=== PATIENT | male | born 1950 | race African-American/Black ===

== ENCOUNTER 2016-07-03 12:10 | Inpatient (IN) ==
--- NOTE | 2016-07-03 13:27 | PROVIDER DOCUMENTATION ---
HPI-General Adult - General Chief Complaint: Weakness Stated Complaint: WEAKNESS Time Seen by Provider: 07/03/16 13:11 Source: patient, family Allergies/Adverse Reactions: Patient Allergies Allergy/AdvReac Type Severity Reaction Status Date / Time levofloxacin [From Levaquin] Allergy Unknown Verified 07/03/16 12:55 Home Medications: Home Medication List Medication Instructions Recorded Confirmed Last Taken Type Allopurinol [Zyloprim] 300 mg PO DAILY 03/31/12 07/03/16 07/02/16 History Isosorbide Mononitrate E.r. [Imdur] 30 mg PO DAILY 03/31/12 07/03/16 07/02/16 History Multivitamin [Multi-Vitamin Daily] 1 each PO DAILY 04/26/14 07/03/16 07/02/16 History Albuterol Sulfate [Proair Hfa] 8.5 gm IH Q4HR 06/13/14 07/03/16 07/02/16 History Bisoprolol Fumarate/Hctz [Ziac 1 each PO DAILY 06/13/14 07/03/16 07/02/16 History 10-6.25 mg Tablet] Donepezil HCl 10 mg PO DAILY 06/13/14 07/03/16 07/02/16 History Nitroglycerin [Nitrostat] 0.4 mg SL PRN PRN 06/13/14 09/26/15 06/01/14 History Spironolactone [Aldactone] 25 mg PO DAILY 06/13/14 07/03/16 07/02/16 History Tamsulosin [Flomax] 0.4 mg PO BID 06/13/14 09/26/15 09/25/15 21:00 History Linagliptin/Metformin HCl 1 tab PO DAILY 05/10/15 07/03/16 07/02/16 History [Jentadueto 2.5 mg-1000 mg Tab] Diltiazem L.a. [Cardizem LA] 120 mg PO DAILY #30 tablet 05/14/15 07/03/16 Rx Aspirin 325 mg PO DAILY 09/26/15 07/03/16 07/02/16 History Esomeprazole [Nexium] 40 mg PO DAILY 09/26/15 07/03/16 07/02/16 History Fluticasone 50 Mcg Nasal Gideon 1 each IESHA DAILY 09/26/15 09/26/15 09/25/15 21: 00 History [Flonase] Furosemide [Lasix] 40 mg PO QHS 09/26/15 09/26/15 09/25/15 21:00 History Furosemide [Lasix] 80 mg PO DAILY 09/26/15 09/26/15 09/25/15 09:00 History Gabapentin 100 mg PO TID 09/26/15 07/03/16 07/02/16 History Hum Insulin NPH/Reg Insulin Hm 80 unit SUBQ TID 09/26/15 09/26/15 09/25/15 22: 00 History [Novolin 70-30 100 Unit/ml Vial] Lisinopril 20 mg PO DAILY 09/26/15 07/03/16 07/02/16 History Montelukast Sodium [Singulair] 10 mg PO DAILY 09/26/15 07/03/16 07/02/16 History Tramadol [Ultram] 50 mg PO PRN PRN 09/26/15 09/26/15 Unknown History Vortioxetine Hydrobromide 10 mg PO DAILY 09/26/15 09/26/15 09/25/15 09:00 History [Brintellix] Ciprofloxacin HCl [Cipro] 500 mg PO DAILY 07/03/16 07/03/16 07/02/16 History - History of Present Illness -Gen Adult Nature of Presenting Problems: 66 yo male with hx of CHF and recurrent UTI presents via ambulance with generalized weakness. Has been worsening over the last several days, per family. HH comes out to see him as has an ulcer on his left foot and on his right buttock, changing dressings. Became concerned today because was very weak and when HH came out they thought his vital signs were abnormal. Says has been off and on with weakness for the past few days, currently on third round of cipro for his UTI x 28 days. Currently takes 80mg Lasix in the morning and 40 mg in the evening. Pt also has DM2, insulin dependent. Blood sugars for the past few days have been good, in the 110-150s. Last week after starting third round of abx were up in the 500s. Has not been drinking much fluid, not eating as much as usual. Has rash in groin, using cream on it but is uncomfortable. Location of Pain/Injury: reports: pelvis, genitalia, lower extremity Pain Radiation: reports: flank (L), legs (lower) Quality of Pain: reports: burning, pressure Severity: reports: moderate Onset/Duration: reports: last week Timing: reports: still present, getting worse Context/Activities at Onset: reports: light activity Modifying Factors: improves with: lying down, rest Associated Symptoms: reports: diarrhea (some diarrhea, denies blood), fatigue, genitourinary problems (current/recurrent UTI), loss of appetite, malaise, shortness of breath, weakness. denies: constipation, diaphoresis, EENT symptoms , fever/chills, headaches, nausea, syncope, vomiting Similar Symptoms Previously?: No Recently seen or treated by another doctor?: Yes (PCM for UTI) - Diabetes Related Context Context: reports: change in mental status (lethargy) Review of Systems - Adult - REVIEW OF SYSTEMS - ADULT Constitutional: reports: tram. denies: chills, fever Eyes: denies: blurred vision, double vision Ears, Nose, Mouth & Throat: denies: sinus problem, throat pain Cardiovascular: reports: edema (LE bilat), orthopnea. denies: chest pain, syncope Respiratory: reports: dyspnea on exertion, shortness of breath. denies: cough, hemoptysis, wheezing Gastrointestinal: reports: abdominal pain (suprapubic), diarrhea (occasional), poor appetite. denies: hematemesis, nausea, rectal bleeding, vomiting Genitourinary: reports: dysuria, flank pain, urinary retention. denies: discharge, hematuria Musculoskeletal: reports: back pain, muscle weakness Integumentary: reports: rash (groin area), skin sores/ulcer (left foot) Neurological: reports: other (lethargy, slow to speak but not slurring words). denies: dizziness/vertigo, headache/migraines, loss of balance, paresthesia, seizure, slurred speech, syncope Endocrine: denies: change in skin pigment, excessive sweating, increased thirst Hematologic/Lymphatic: denies: easy bruising Past History - Adult - PAST MEDICAL HISTORY-ADULT Review of Records: reports: Old Records Reviewed, Nursing Assessment Review, Medications Reviewed, Social history reviewed & non-contributory. Major Childhood Illnesses: reports: denies history Cardiovascular: reports: CHF, HTN, [place] Respiratory: reports: COPD Gastrointestinal: reports: GERD Endocrine/Immune: reports: Diabetes Diabetes Type: Type 2 Diabetes controlled by:: Insulin Dependent - PRIOR SURGERIES/PROCEDURES Surgical/Procedure History: reports: cardiac stent (x6), orthopedic (extremity) - IMMUNIZATION STATUS Childhood Immunizations: See Nurse Assessment Flu Vaccine: See Nurse Assessment - FAMILY HISTORY Family History: reviewed, not pertinent - SOCIAL HISTORY Smoking: quit greater than 1 year (quit 17 years ago) Physical Exam-General - PHYSICAL EXAM-ADULT Initial Vital Signs Reviewed: Yes - CONSTITUTIONAL General Appearance: severe distress, obese, lethargic, slow to respond - EYES Eyes: other (dry conjunctiva without erythema or drainage) - HEAD, EARS, NOSE, MOUTH & THROAT HENMT: normocephalic/atraumatic. negative: moist mucous membranes (dry lips) - NECK Neck: supple. negative: trachial deviation - RESPIRATORY Respiratory: chest non-tender, lungs clear, respiratory distress (shallow breathing, pt laying on side in bed due to pain in buttock. is on O2 NC), decreased breath sounds. negative: accessory muscle use, crackles, rales, rhonchi, stridor, wheezing, crepitus - CARDIOVASCULAR Cardiovascular: regular rate, rhythm, no gallop, no JVD, no murmur. negative: no edema (Peripheral edema bilat, pitting 1+), bradycardia, tachycardia - GASTROINTESTINAL (ABDOMEN) Abdominal Exam: non tender, soft. negative: distended, guarding, rigid, rebound , tenderness - MUSCULOSKELETAL Back Exam: no CVA tenderness, decreased range of motion (not able to move easily on bed due to pain). negative: ecchymosis Extremity: erythema, inflammation, pedal edema (1+ pitting), swelling, tenderness. negative: no pedal edema Peripheral Pulses: radial (R): 1+, radial (L): 1+, dorsalis-pedis (R): 1+, dorsalis-pedis (L): 1+ - SKIN Integumentary: decubitus, swelling, tenderness - NEUROLOGIC Neurologic: motor weakness (bilateral with hand squeeze, diminished) - PSYCHIATRIC Psych/Mental Status: other (lethargic, didn't speak much to me, mostly had speak for him) Progress - PLAN OF CARE/RESULTS Progress/Plan/Lab Results: Vital Signs - 8 hr 07/03/16 12:51 Temperature 97.8 F Pulse Rate 64 Respiratory Rate 22 Blood Pressure 119/84 O2 Sat by Pulse Oximetry 100 Orders Category Date Time Status Saline Loc NOW Care 07/03/16 13:23 Ordered CHEST-2 VIEWS [RAD] Stat Exams 07/03/16 13:23 Ordered CBC WITH DIFF [HEME] Stat Lab 07/03/16 13:23 Uncollected CK PROFILE [SP CHEM] Stat Lab 07/03/16 13:23 Uncollected COMPREHENSIVE METABOLIC PANEL [CHEM] Stat Lab 07/03/16 13:23 Uncollected PRO B-NATRIURETIC PEPTIDE Stat Lab 07/03/16 13:23 Uncollected TROPONIN T Stat Lab 07/03/16 13:23 Uncollected UA NIMS W/REFLEX CULT [URINALYSIS] Stat Lab 07/03/16 13:[address] Callejas regarding patient, she went to see him at bedside. Pt has significant weakness and lethargy, dehydration, hx of CHF and recurrent UTI with elevation in white count. No other SIRS criteria at this time, recheck of vitals had all vitals wnl. Recommend admission for dehydration, recurrent UTI, altered mental status and weakness. Per Dr. Callejas, no signs of Forniere's gangrene on inspection of groin. Called Hospitalist at [address] Pollard Result Diagrams: 07/03/16 14:06 07/03/16 14:06 Departure - Departure Time of Disposition Decision: 16:40 DIAGNOSIS: Weakness, Lethargy, Dehydration, Shortness of breath UTI (urinary tract infection) Qualifiers: Urinary tract infection type: acute cystitis Hematuria presence: without hematuria Qualified Code(s): N30.00 - Acute cystitis without hematuria CHF (congestive heart failure) Qualifiers: Congestive heart failure type: unspecified congestive heart failure type Congestive heart failure chronicity: chronic Qualified Code(s): I50.9 - Heart failure, unspecified CHF exacerbation Qualifiers: Congestive heart failure type: unspecified congestive heart failure type Qualified Code(s): I50.9 - Heart failure, unspecified Dyspnea Qualifiers: Dyspnea type: shortness of breath Qualified Code(s): R06.02 - Shortness of breath Disposition: ADMITTED INPATIENT 09 Certified Medical Emergency: Emergent Condition: Poor Referrals and Follow-Ups: Mickie Guthrie MD [Primary Care Provider] - Attestation - Physician/ JOE Attestation Patient care was provided by Advanced Practice Provider:: Yes Advanced Practice Provider:: Serjio Garcia Advanced Practice Provider documentation review:: The Mid-level provider documentation, treatment plan and medical decision making was reviewed by the physician who agrees with all treatment and medical decision making by the MLP. The physician spent face to face time with patient:: Yes Advanced Practice Provider documentation review:: The physician spent face to face time with this patient and agrees with all MLP documentation, treatment, and medical decision making by the MLP. See provider notes for further information.
[2016-07-03 14:20] LABS: MANUAL DIFF NEEDED? NO
[2016-07-03 14:29] LABS: BASO% 0.4 % (0.0-0.8); EOS# 0.11 X1000 (0.0-0.7); EOS% 0.9 % (0.0-10.0); HEMATOCRIT 41.6 % (42.0-52.0); HEMOGLOBIN 13.9 g/dL (14.0-18.0); IMM GRAN# 0.02 X1000 (0.0-0.04); IMM GRAN% 0.2 % (0.0-0.5); LYMPH# 5.15 X1000 (1.2-3.4); MCHC 33.4 g/dL (33-37); MCV 92.7 FL (81-99); MONO# 1.29 X1000 (0.11-0.59); MONO% 10.3 % (1.7-9.3); MPV 12.1 FL (7.4-10.4); NEUT% 47.2 % (42.2-75.2); PLT 235 X1000 (130-400); RBC 4.49 XMIL (4.7-6.1)
--- NOTE | 2016-07-03 14:29 | Diag Imaging Result Document ---
PROCEDURE NAME: CHEST-1 VIEW - 07/03/2016 PORTABLE CHEST X-RAY: COMPARISON: 09/26/2015. FINDINGS: Stable cardiomegaly. Stable low lung volumes with right hemidiaphragm elevation. No definite infiltrates. IMPRESSION: Cardiomegaly. Low lung volumes. No change from prior.
[2016-07-03 14:42] LABS: CALCIUM 9.5 mg/dL (8.8-10.2); POTASSIUM 4.8 mmol/L (3.5-5.1); TOTAL BILIRUBIN 0.19 mg/dL (0.20-1.00); TOTAL PROTEIN 7.5 g/dL (6.3-8.3)
[2016-07-03 15:02] LABS: CK INDEX 1.3 (0.0-2.5); CK-MB 4.55 ng/mL (0.0-5.0)
[2016-07-03] MEDS ORDERED: NS 1,000 ML IV ONE (15:40)
--- NOTE | 2016-07-03 17:40 | ED EKG INTERP ---
This chart was entered by Grace Nguyễn Scribe, acting as scribe for Phillip Callejas MD. EKG Interpretation - EKG Time of EKG reading by physician:: 12:23 EKG Read and Signed by:: Phillip Callejas EKG Interpretation (*Must complete 3 of following elements*): Abnormal Rate: 63 Rhythm: nsr QRS: normal MS Interval: normal Prior EKG Comparison: unchanged from prior Comments: anterior infarct This chart was documented by the indicated scribe, (Grace Nguyễn Scribe) and accurately reflects the services I performed and decisions made by Britta rendon Tom-Meka M., MD, as attested by the provider's signature.
[2016-07-03] MEDS ORDERED: PLAVIX PO ONE (17:52)
[2016-07-03] MEDS ORDERED: ASPIRIN PO ONE (17:52)
--- NOTE | 2016-07-03 18:53 | HISTORY AND PHYSICAL ---
HISTORY OF PRESENT ILLNESS: This is a 66-year-old. He states that he woke up about 4:30 this morning and he seemed to be weaker and it seemed to progress on his left side in particular. His left side seemed to be weak in his left arm and left leg. They did not notice any facial drooping. No change in speech. No change in vision by his report. He never lost consciousness. He just could tell he was getting weak on that left side. Denies any seizure activity or myoclonus. No trauma recently. PAST MEDICAL HISTORY: 1. Coronary artery disease. He has had, I think, 2 myocardial infarctions. He has had a total of 6 stents placed. 2. Diabetes mellitus type 2 insulin dependent. 3. Hypertension. 4. Morbid obesity. 5. Gastroesophageal reflux disease. 6. Hyperlipidemia. 7. Chronic obstructive pulmonary disease on 4 liters of O2 per nasal cannula. 8. Chronic renal insufficiency. 9. Dementia. 10. Ataxia. 11. History of tremor in the past. 12. Chronic kidney disease. PAST SURGICAL HISTORY: Knee replacement, back surgery, cardiac stenting x6. Apparently, he has had back trouble, and they did a diskectomy years ago, but he is having more trouble with his back, and because of his size, they are not able to do anymore. SOCIAL HISTORY: He is disabled and his takes care of him. Former smoker of 3 packs per day, quit in 1999. Negative ethanol. Negative for drugs. FAMILY HISTORY: I did not explore, but looking back at the previous history, mother had a CVA, father myocardial infarction and coronary artery disease. HOME MEDICATIONS: List of home medications reviewed. ALLERGIES: No known drug allergies. REVIEW OF SYSTEMS: Constitutional: No recent weight gain or loss. No fever or chills. HEENT: Unremarkable. Respiratory: No increased work of breathing or dyspnea. Cardiovascular: No chest pain or tachy palpitation. Gastrointestinal/Genitourinary: No significant complaints noted, and they are watching him for chronic kidney disease, and it looks like his serum creatinine is elevated. He does have a history of gastroesophageal reflux. PHYSICAL EXAMINATION: GENERAL: On physical exam in the emergency room, he is awake, alert, pleasant, at the bedside, and gives a good history. VITAL SIGNS: Temperature 98.2 degrees, pulse 65, respirations 20, blood pressure 103/52. HEENT: Pupils are equal, round. CVP less than 6 cm. LUNGS: Clear in all lung pascual, anterolateral. CARDIOVASCULAR: Regular rhythm and rate without murmur or S3. ABDOMEN: Soft, nontender. Positive bowel sounds. SKIN: Warm and dry. MUSCULOSKELETAL: It is difficult for me to tell the true difference in the right and left side. 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 He is able to lift his left leg off the bed. It feels like it is a little stronger than it was a couple of hours ago. EXTREMITIES: Without clubbing, cyanosis, or edema. WEIGHT AND HEIGHT: His weight is 292 pounds, height 5 feet 10 inches. OXYGEN SATURATION: His O2 saturation was 98%. LABORATORY DATA: White blood cell count 12,570, hematocrit 41, platelet count 235,000. Sodium 138, potassium 4.8, chloride 99, bicarbonate 21, BUN 124, creatinine 3.6, blood sugar 104, calcium 9.5. Liver functions unremarkable. Alkaline phosphatase 104. CPK 346 total and MB was 0.086, index 4.55, proBNP 56. Albumin 4. Chest x-ray, cardiomegaly and low lung volumes, unremarkable, no acute pathology. ASSESSMENT AND PLAN: 1. Left sided weakness. Difficult to measure, concerned about possible transient ischemic attack versus a cerebrovascular accident in the right hemisphere. We may very well want to get an MRI or MRA of the head or both tomorrow. We will watch his blood pressure. Reviewing his medications, he is not on aspirin. We will make sure we give him some aspirin, and I think I will give him the 325, give 1 dose now and every day. 2. History of coronary artery disease. I do not see any evidence of active cardiac ischemia at this time. 3. History of gouty arthritis, aware. He is on allopurinol. 4. Hypercholesterolemia. He is on Crestor. Check his lipid profile in the morning. 5. History of hypertension. We will monitor his blood pressure. He is on lisinopril. He is on Imdur. 6. Diabetes mellitus type 2. Check pattern sugars and see how we are doing with the sugars. Check a hemoglobin A1c in the morning. Also, we will check a T4, TSH, B12, and folate. Check another set of enzymes of CPK and troponin in the morning as well. 7. Chronic kidney disease. I am guessing this is at least a stage 3B and may be progressing. We will give him some fluids and see how we do. Looking at previous echocardiogram done on 05/13/2015, he appears to have some trace mitral regurgitation. There is no pericardial effusion. His ejection fraction is 50% to 55%. Normal left ventricular activity. cc: Chilango Pollard MD
[2016-07-03] MEDS ORDERED: ZOFRAN IV PRN (19:34)
[2016-07-03] MEDS: TYLENOL PO PRN (20:47)
[2016-07-03] MEDS: NS 1,000 ML IV SCH (20:47)
[2016-07-03] MEDS: LIPITOR PO SCH (20:47)
[2016-07-03] MEDS: HUMULIN R SUBQ SCH (20:48)
[2016-07-03] MEDS: HEPARIN SUBQ SCH (20:48)
[2016-07-03] MEDS ORDERED: CALMOSEPTINE OINTMENT TOP PRN (21:12)
[2016-07-03] MEDS: VENTOLIN HFA INH SCH (23:41)
[2016-07-04] MEDS: TYLENOL PO PRN ×2 (02:37→20:45)
[2016-07-04] MEDS: VENTOLIN HFA INH SCH ×6 (02:43→20:05)
[2016-07-04 05:32] LABS: MANUAL DIFF NEEDED? NO
[2016-07-04 05:35] LABS: BASO% 0.6 % (0.0-0.8); EOS# 0.12 X1000 (0.0-0.7); EOS% 1.5 % (0.0-10.0); HEMATOCRIT 39.6 % (42.0-52.0); HEMOGLOBIN 13.2 g/dL (14.0-18.0); MCHC 33.3 g/dL (33-37); MONO# 1.02 X1000 (0.11-0.59); MONO% 12.6 % (1.7-9.3); MPV 12.3 FL (7.4-10.4); NEUT% 38.3 % (42.2-75.2); PLT 207 X1000 (130-400); RBC 4.26 XMIL (4.7-6.1)
--- NOTE | 2016-07-04 05:41 | EKG Report ---
Test Performed on : 07/03/2016 12:23:28 PM Test Reason : No Order in [facility] Blood Pressure : / mmHG Vent. Rate : 063 BPM Atrial Rate : 063 BPM P-R Int : 170 ms QRS Dur : 096 ms QT Int : 450 ms P-R-T Axes : 047 -05 012 degrees QTc Int : 460 ms Normal sinus rhythm. Cannot rule out Anterior infarct , age undetermined Abnormal ECG When compared with ECG of 26-SEP-2015 01:29, premature atrial complexes. are no longer present Unconfirmed Result
[2016-07-04 05:47] LABS: INR 1.04
[2016-07-04 05:56] LABS: HEMOGLOBIN A1C 9.6 % (4.8-6.0)
[2016-07-04 06:09] LABS: FREE T4 1.06 ng/dL (0.93-1.70)
[2016-07-04 06:13] LABS: ALBUMIN 3.5 g/dL (3.5-5.0); CALCIUM 8.8 mg/dL (8.8-10.2); POTASSIUM 5.1 mmol/L (3.5-5.1); TOTAL BILIRUBIN 0.22 mg/dL (0.20-1.00); TOTAL PROTEIN 7.1 g/dL (6.3-8.3)
[2016-07-04] MEDS: HUMULIN R SUBQ SCH ×4 (06:53→20:34)
[2016-07-04] MEDS: NS 1,000 ML IV SCH ×2 (07:41→20:46)
[2016-07-04] MEDS: CARDIZEM LA PO SCH (09:47)
[2016-07-04] MEDS: NEXIUM PO SCH (09:47)
[2016-07-04] MEDS: ZEBETA PO SCH (09:48)
[2016-07-04] MEDS: HEPARIN SUBQ SCH ×2 (09:48→20:34)
[2016-07-04] MEDS: IMDUR PO SCH (09:48)
[2016-07-04] MEDS: ASPIRIN PO SCH (09:48)
[2016-07-04] MEDS: PLAVIX PO SCH (09:48)
[2016-07-04] MEDS: ARICEPT PO SCH (09:51)
--- NOTE | 2016-07-04 12:52 | PROGRESS NOTE ---
DATE: 07/04/2016 SUBJECTIVE: Left side feels about the same. Still weak in the left and the left leg. He is too large to get an MRI and I am unable to get that. He did have some questions. Apparently, they were treating him for diverticulitis and he is on Flagyl and Cipro. So, I will put him back on those. He also stated that Dr. Elam wants him to stay on the LAURA inhibitor. So, we will probably start that back again as well. Dr. Elam is to see him here as well and we will discuss his case. OBJECTIVE: Vital Signs: Afebrile, temp 97.5 degrees, pulse 72, respirations 16, blood pressure 115/60. HEENT: Pupils are equal, round. Lungs: Clear in all lung pascual. Cardiovascular: Regular rate without murmurs or S3. Abdomen: Soft. Skin: Warm and dry. : He has had about 240 mL urine output. LAB: White count 8080, hematocrit 39, platelet count 207,000. Blood sugar 131, troponin 0.077. Hemoglobin A1c was 9.6. ASSESSMENT AND PLAN: 1. Left-sided weakness. I suspect this was a right hemisphere cerebrovascular accident. We will ask Dr. Jc to weigh in and give his opinion. Unable to get an MRI and MRA of his head because of his size. I did add Plavix to his regimen. 2. History of coronary artery disease. I do not see any sign of active ischemia. 3. History of gouty arthritis. He was on allopurinol and probably will restart that. I have held that because of renal function. 4. Hypercholesterolemia. He is on Crestor. 5. Hypertension. He was on lisinopril. Renal function, we will repeat this morning and then make a decision. Probably put him back on his lisinopril. 6. Chronic kidney disease. Recheck electrolytes and CBC this morning. cc: Chilango Pollard MD
--- NOTE | 2016-07-04 13:11 | ECHO REPORT ---
ORDER DATE: 07/04/2016 INDICATION: Stroke symptoms. FINDINGS: 1. The right atrium appears normal in size at 3.9 cm. 2. Mild tricuspid regurgitation. 3. Normal RV size and systolic function. 4. Trace pulmonic insufficiency. 5. Mild left atrial enlargement at 4.4 cm. 6. No mitral prolapse. Trace mitral regurgitation. 7. Normal LV size, end-diastolic dimension of 5.1. Normal wall thicknesses with a posterior and interventricular septal thickness of 1.1 and 0.9 cm respectively. Normal LV systolic function. Calculated EF of 53% with normal wall motion. 8. Aortic valve opens well and appears trileaflet. No evidence of stenosis or insufficiency. 9. Aorta appears normal in visualized segments. 10. No pericardial effusion is seen. cc: MD Yoselin Ugarte CRNP
[2016-07-04 13:37] LABS: CALCIUM 8.8 mg/dL (8.8-10.2); MAGNESIUM 2.3 mg/dL (1.5-2.7); POTASSIUM 5.4 mmol/L (3.5-5.1)
--- NOTE | 2016-07-04 13:51 | Diag Imaging Result Document ---
PROCEDURE NAME: HEAD W/O CONTRAST - 07/04/[address]: A CT dose reduction protocol was used. COMPARISON: 09/26/2015. FINDINGS: There is stable moderately extensive periventricular white matter chronic microvascular disease. No intracranial mass or hemorrhage. The skull is intact. The sinuses , mastoids, and middle ears are clear. IMPRESSION: No acute disease or change from prior. MTDD
[2016-07-04] MEDS: NEURONTIN PO SCH ×2 (14:23→16:42)
[2016-07-04] MEDS: CIPRO PO SCH ×2 (14:23→20:33)
--- NOTE | 2016-07-04 14:51 | CONSULTATION ---
DATE OF CONSULTATION: 07/04/2016 HISTORY OF PRESENT ILLNESS: Mr. Eller is 66 years old. He reports noticing weakness in the left limbs approximately a week prior to admission. This reached the point that he was having a good bit of trouble getting around. He may have been suddenly more weak in the left limbs on the morning that he was admitted. There was no altered consciousness, altered awareness, significant headache, vision disturbance, speech difficulty, trouble chewing. He has past history of dyslipidemia, hypertension, diabetes mellitus, ischemic heart disease. I saw him in 2012 with gait difficulty and findings then were consistent with peripheral neuropathy and antalgic gait. Workup here includes labs showing A1c 9.6%. Blood pressures have not been remarkably elevated. He reports he was taking all of his medicines correctly prior to admission. PHYSICAL EXAMINATION: On exam, Mr. Eller that is awake, alert, attentive, oriented. Speech is not dysarthric. Language function is intact. Memory seems good. I did not test his cognitive function thoroughly. Head and neck are unremarkable. Visual pascual are full tested by confrontational finger counting. Extraocular movements are full. Facial motility is good bilaterally. The left nasolabial fold is slightly less prominent than the right , but motility is good bilaterally. Gag is intact. Tongue is midline. He can hear. Shoulder shrug is good bilaterally. He has good power in the right limbs. On the left, I could consistently overcome the deltoid grading 4/5, and iliopsoas 4/5. Tone is increased in the left arm. He did rapid alternating movements a little better with the right hand than the left. He did better with right [id number] testing than with the left. He has a stocking pattern of sensory loss to pinprick and light touch testing. Proprioception is good at the right great toe MTP joint and his responses are inconsistent when testing proprioception at the left great toe MTP joint. I did not test his gait. Feet are warm. IMPRESSION: Left-sided weakness. Features are consistent with an upper motor neuron pattern, likely acute ischemic nondominant right hemisphere infarction. This is a relatively pure motor deficit making this more likely subcortical. His risk factors are outlined above. We will get CT scan and further plans will depend on that report and on his clinical course. He may not fit into the MRI scanner. Thanks for asking me to see Mr. Eller. cc: Alyssa Jc III, MD MTDD
[2016-07-04 18:49] LABS: URINE CULTURE NEEDED? NO; URINE MICRO REVIEW NEEDED? NO; URINE SOURCE CLEAN CATCH
[2016-07-04 18:55] LABS: BILIRUBIN URINE NEGATIVE (NEGATIVE); BLOOD URINE NEGATIVE (NEGATIVE); COLOR STRAW; GLUCOSE URINE NEGATIVE (NEGATIVE); LEUKOCYTES URINE NEGATIVE (NEGATIVE); NITRITE URINE NEGATIVE (NEGATIVE); PH URINE 5.5; PROTEIN URINE NEGATIVE (NEGATIVE); SP GRAVITY URINE 1.011; TURBIDITY URINE CLEAR (CLEAR); UROBILINOGEN URINE NORMAL (NORMAL)
[2016-07-04 18:57] LABS: UR EPITHELIAL CELLS <10 /HPF (<10); URINE BACTERIA NEGATIVE /HPF; URINE RBC <10 /HPF (<10); URINE WBC <10 /HPF (<10)
[2016-07-04] MEDS: LIPITOR PO SCH (20:33)
[2016-07-05] MEDS: VENTOLIN HFA INH SCH ×4 (02:54→19:59)
[2016-07-05] MEDS: HUMULIN R SUBQ SCH ×4 (06:37→21:21)
[2016-07-05 07:29] LABS: POTASSIUM 5.5 mmol/L (3.5-5.1)
[2016-07-05] MEDS: NS 1,000 ML IV SCH ×4 (08:02→20:45)
[2016-07-05] MEDS: NEXIUM PO SCH (08:03)
[2016-07-05] MEDS: NEURONTIN PO SCH ×3 (08:03→16:24)
[2016-07-05] MEDS: HEPARIN SUBQ SCH ×2 (08:03→20:46)
[2016-07-05] MEDS: CIPRO PO SCH ×2 (08:03→20:45)
[2016-07-05] MEDS: ZEBETA PO SCH (08:03)
[2016-07-05] MEDS: ARICEPT PO SCH (08:03)
[2016-07-05] MEDS: THERA M PLUS PO SCH (08:03)
[2016-07-05] MEDS: TRADJENTA PO SCH (08:03)
[2016-07-05] MEDS: PLAVIX PO SCH (08:03)
[2016-07-05] MEDS: GLUCOPHAGE XR PO SCH (08:03)
[2016-07-05] MEDS: PRINIVIL PO SCH (08:03)
[2016-07-05] MEDS: CARDIZEM LA PO SCH (08:04)
[2016-07-05] MEDS: IMDUR PO SCH (08:04)
[2016-07-05] MEDS: ASPIRIN PO SCH (08:04)
--- NOTE | 2016-07-05 12:09 | PROGRESS NOTE ---
DATE: 07/05/2016 SUBJECTIVE: Mr. Eller is feeling better. His left side is moving much better. He thinks it is back to baseline. He is very encouraged. No pain or discomfort. OBJECTIVE: Vital signs: Temperature 97.6 degrees, pulse 64, respirations 16, blood pressure 127/51. HEENT: Pupils are equal and round. Neck: CVP less than 6 cm. Lungs: Clear in all lung pascual. Cardiovascular: Regular rhythm and rate, without murmur or S3. Abdomen: Soft. URINE OUTPUT: It looks like urine output was over 2.5 L. LABORATORIES: Reviewed Laboratory from yesterday. Hematocrit is stable at 39. Creatinine was 2.1, which has come down today. Sodium 137, potassium 5.5, chloride 105, BUN 81, creatinine 2.1, blood sugar 188, 251, and 235. IMAGING: CT of his head on 07/04/2016: No acute disease. We were unable to get an MRI of the head because of his size. Appreciate Dr. Jc's help with consultation. He saw him yesterday. 1. Left-sided weakness, features consistent with upper motor neuron pattern, likely acute ischemic nondominant right hemisphere infarction, but this has improved pretty dramatically, so he is much better. That is encouraging. CT scan did not reveal anything and we may repeat that. I have added Plavix to his aspirin. 2. Chronic kidney disease, acute on chronic. Continue his present fluids. Creatinine has improved. Will continue him on his LAURA inhibitor. 3. Diabetes mellitus, type 2. We will continue to adjust insulin. 4. Lower back pain, chronic pain. 5. Morbid obesity. cc: Chilango Pollard MD
[2016-07-05] MEDS: TYLENOL PO PRN (18:38)
[2016-07-05] MEDS: LIPITOR PO SCH (20:45)
[2016-07-06] MEDS: VENTOLIN HFA INH SCH ×3 (02:59→09:22)
[2016-07-06] MEDS: NS 1,000 ML IV SCH ×2 (05:14→06:25)
[2016-07-06] MEDS: TYLENOL PO PRN (06:23)
[2016-07-06] MEDS: HUMULIN R SUBQ SCH ×2 (06:24→11:10)
[2016-07-06 07:33] VITALS: BP 140/95
[2016-07-06 07:50] LABS: CALCIUM 9.2 mg/dL (8.8-10.2); MAGNESIUM 2.1 mg/dL (1.5-2.7); POTASSIUM 5.6 mmol/L (3.5-5.1)
[2016-07-06 08:11] LABS: FREE T4 1.23 ng/dL (0.93-1.70)
[2016-07-06] MEDS: TRADJENTA PO SCH (08:17)
[2016-07-06] MEDS: NEURONTIN PO SCH (08:17)
[2016-07-06] MEDS: THERA M PLUS PO SCH (08:17)
[2016-07-06] MEDS: CIPRO PO SCH (08:17)
[2016-07-06] MEDS: ARICEPT PO SCH (08:17)
[2016-07-06] MEDS: ZEBETA PO SCH (08:17)
[2016-07-06] MEDS: IMDUR PO SCH (08:17)
[2016-07-06] MEDS: PLAVIX PO SCH (08:17)
[2016-07-06] MEDS: NEXIUM PO SCH (08:17)
[2016-07-06] MEDS: CARDIZEM LA PO SCH (08:18)
[2016-07-06] MEDS: ASPIRIN PO SCH (08:18)
[2016-07-06] MEDS: GLUCOPHAGE XR PO SCH (08:18)
[2016-07-06] MEDS: PRINIVIL PO SCH (08:18)
[2016-07-06] MEDS: HEPARIN SUBQ SCH (08:18)
--- NOTE | 2016-07-06 20:49 | DISCHARGE SUMMARY ---
ADMISSION DATE: 07/03/2016 DISCHARGE DATE: 07/06/2016 HOSPITAL COURSE: This 66-year-old admitted on 07/03/2016, discharged on 07/06/2016. 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 His CT scan did not confirm anything, he is too large to put into an MRI so unable to confirm with MRI or MRA. He did seem to clinically get better. I added Plavix to his regimen. PAST MEDICAL HISTORY: Includes 1. Coronary artery disease. I think has had 2 events possibly only 1 event but he has had a total of 6 stents placed. 2. Diabetes mellitus type 2 insulin dependent. 3. Hypertension. 4. Morbid obesity. 5. Gastroesophageal reflux disease. 6. Hyperlipidemia. 7. Chronic obstructive pulmonary disease. He is on O2 at home. 8. Chronic renal insufficiency. 9. Dementia. 10. Ataxia. 11. History of tremor in the past. 12. Chronic kidney disease. The patient had physical therapy. Dr. Jc did evaluate and felt it was consistent with a right hemisphere CVA but did clinically improve which was very encouraging, felt like his strength was getting close to baseline though he has chronic underlying kidney disease I would say stage 3B, felt like he could go home on 07/06/2016, will get home health. MEDICATIONS: He is on multivitamin 1 a day, Glucophage XR 1000 mg daily, Calmoseptine ointment as needed, Prinivil 20 mg a day, Tradjenta 2.5 mg daily, Imdur 30 mg a day, he takes his Humulin I think at home, his Neurontin as 100 mg t.i.d., Nexium 40 mg a day, Aricept 10 mg a day, Cardizem LA 120 mg daily, Plavix 75 mg a day there is the new medicine and I put him back on his Cipro and his Flagyl, Cipro he was taking 250 mg b.i.d. and Flagyl he was taking as well for diverticulitis, Zebeta 10 mg a day, Lipitor 40 mg a day, aspirin been reduced to 81 mg a day. DISCHARGE INSTRUCTIONS: He will follow up with his primary care and will get home health to resume some physical therapy. We discussed the benefits and importance of low carbohydrate low- calorie diet, some weight loss and some improvement in his strength. cc: Chilango Pollard MD
--- NOTE | 2016-07-09 10:56 | Carotid Study ---
DATE: 07/04/2016 PROCEDURE: Bilateral duplex and color flow imaging of the carotid arteries performed using a [employer] Vivid E9 Ultrasound System with a 9L-D transducer. REFERRING PHYSICIAN: Our hospitalist. INTERPRETING PHYSICIAN: Mary Ann Celis MD INDICATIONS: Transient ischemic attack (ICD-10 G45.9). OBSERVED DATA RIGHT LEFT Brachial Blood Pressure Carotid Pulse Bruits: Carotid/Sub DIAGRAM OF ULTRASOUND IMAGING R L RIGHT INT EXT INT EXT LEFT Cesar (cm/s) Cesar (cm/s) Subclavian 132/6 Subclavian 139/0 CCA Proximal 108/11 CCA Proximal 109/20 CCA Distal 103/19 CCA Distal 95/19 Bulb 83/13 Bulb 103/9 ICA Proximal 85/16 ICA Proximal 57/12 ICA Mid 91/24 ICA Mid 70/19 ICA Distal 66/22 ICA Distal 82/23 ECA 95/13 ECA 75/8 Vertebral 24/6 A Vertebral 50/9 A ICA/CCA Ratio 0.85 ICA/CCA Ratio 0.75 % Stenosis 0%-39% % Stenosis 0%-39% PHYSICIAN INTERPRETATION: Mild atherosclerotic disease of the distal common and internal carotid arteries bilaterally without evidence of a hemodynamically significant lesion in either carotid system. cc: MD Yoselin Cuello CRNP
== END 2016-07-06 15:24 | disposition home health service (06) ==
LOC: ED 12:10 → 3N 18:45 → SUATTDRO 18:45
PROVIDERS: ATTEND Emergency Medicine